=== PATIENT | female | born 1960 | race Caucasian/White ===

== ENCOUNTER 2024-08-05 12:15 | Emergency (ER) | payer OTHER, SELFPAY ==
[2024-08-05 12:31] VITALS: BP 140/63; PULSE 70; RESP 20; TEMP 36.9; O2SAT 100; BMI 27.4
--- NOTE | 2024-08-05 12:35 | ED_ITS ---
HPI - General Adult General Chief complaint: General Medical Stated complaint: Chest discomfort History of Present Illness HPI narrative: Patient left without completion of treatment by ED provider. Related Data Allergies Allergy/AdvReac Type Severity Reaction Status Date / Time No Known Allergies Allergy Verified 08/05/24 12:34 [facility] Social History Social History Advance Directives: No Advance Directives Information Provided: No Physical Exam ED Vital Signs: Vital Signs - 24 hr 08/05/24 12:31 Temperature 98.5 F Pulse Rate 70 Respiratory Rate 20 Blood Pressure 140/63 H Pulse Oximetry 100 Oxygen Delivery Method Room Air BMI result Body Mass Index 27.4 Course Course Course Narrative: RME: 63 yold female presents to the ED for epigastric abdominal pain while at work. Patient states pmh of GERD. no releif with PPI meds. positigve for slighs epigastric tenderness. Labs ekg ordered Medical Decision Making Lab Data 08/05/24 12:56 08/05/24 12:56 Labs: Lab Results 08/05/24 08/05/24 Range/Units 12:56 15:17 WBC 6.4 (4.8-10.8) X10*3/uL RBC 4.36 (4.20-5.50) X10*6/uL Hgb 12.9 (12.0-16.0) g/dl Hct 38.3 (37.0-47.0) % MCV 87.8 (80.0-98.0) fL MCH 29.6 (27.0-33.0) pg MCHC 33.7 (31.0-35.0) g/dl RDW 13.7 (11.0-16.0) % Plt Count 234 (160-400) X10*3/uL MPV 10.0 (9.4-12.3) fL Immature Gran % (Auto) 0.2 (0.0-0.4) % Neut % (Auto) 50.1 (45-73) % Lymph % (Auto) 39.4 (20-40) % [place] % (Auto) 8.9 (2-11) % Eos % (Auto) 1.1 (0-4) % Baso % (Auto) 0.3 (0-2) % Lymph # (Auto) 2.5 (1.2-4.9) X10*3/uL [place] # (Auto) 0.6 (0.1-1.2) X10*3/uL Eos # (Auto) 0.1 (0.0-0.4) X10*3/uL Baso # (Auto) 0.0 (0.0-0.2) X10*3/uL Abs Immat Gran (auto) 0.01 (0.00-0.03) X10*3/uL Absolute Neuts (auto) 3.2 (2.0-8.3) x10*3/uL Absolute Nucleated RBC 0.000 (0.0-0.012) X10*3/uL Nucleated RBC % (auto) 0.0 (0.0-0.2) /100WBC PT 10.7 L (10.9-12.4) SEC INR 0.9 (0.9-1.1) APTT 30.5 (26.0-36.8) SEC Sodium 142 (135-145) mmol/L Potassium 4.1 (3.3-5.1) mmol/L Chloride 108 (96-108) mmol/L Carbon Dioxide 25 (22-29) mmol/L Anion Gap 13 (12-20) BUN 11 (9-16) mg/dL Creatinine 0.66 (0.5-1.4) mg/dL Estim Creat Clear Calc 80.8 Estimated GFR > 60 Random Glucose 76 (60-115) mg/dL Calcium 9.3 (8.4-10.2) mg/dL Total Bilirubin 0.4 (0.0-1.0) mg/dL AST 21 (5-31) U/L ALT 16 (0-31) U/L Alkaline Phosphatase 70 (39-117) U/L Troponin I High Sens < 2.7 < 2.7 (<3.5-17.0) ng/L Total Protein 7.0 (6.5-8.0) g/dL Albumin 4.2 (3.5-5.0) g/dL Lipase 42 (8-78) U/L Discharge Plan Discharge Clinical Impression: Abdominal pain Patient Disposition: Left W/O Completing Treatment Discharge Date/Time: 08/05/24 15:44
--- NOTE | 2024-08-05 12:36 | ECG_ITS ---
Test Reason : EPIGASTRIC PAIN Blood Pressure : */* mmHG Vent. Rate : 67 BPM Atrial Rate : 67 BPM P-R Int : 170 ms QRS Dur : 80 ms QT Int : 398 ms P-R-T Axes : -8 -8 -1 degrees QTcB Int : 420 ms Normal sinus rhythm with sinus arrhythmia Low voltage QRS Borderline ECG No previous ECGs available Referred By: Alonzo Pavon Electronically Signed By: FRANCIE GIFFORD
[2024-08-05 13:01] LABS: Basophils Percent Auto 0.3 % (0-2); Eosinophils Absolute Auto 0.1 X10*3/uL (0.0-0.4); Eosinophils Percent Auto 1.1 % (0-4); Hematocrit 38.3 % (37.0-47.0); Hemoglobin 12.9 g/dl (12.0-16.0); Imm Gran Abs Auto 0.01 X10*3/uL (0.00-0.03); Imm Gran Pct Auto 0.2 % (0.0-0.4); Lymphocytes Absolute Auto 2.5 X10*3/uL (1.2-4.9); Lymphocytes Percent Auto 39.4 % (20-40); MANUAL DIFF FLAG NO; Mean Corpuscular HGB Conc 33.7 g/dl (31.0-35.0); Mean Corpuscular Hemoglobin 29.6 pg (27.0-33.0); Mean Corpuscular Volume 87.8 fL (80.0-98.0); Monocytes Absolute Auto 0.6 X10*3/uL (0.1-1.2); Monocytes Percent Auto 8.9 % (2-11); Neutrophils Absolute Auto 3.2 x10*3/uL (2.0-8.3); Neutrophils Percent Auto 50.1 % (45-73); Platelet Count 234 X10*3/uL (160-400); Red Blood Count 4.36 X10*6/uL (4.20-5.50); Red Cell Distribution Width 13.7 % (11.0-16.0); White Blood Count 6.4 X10*3/uL (4.8-10.8)
[2024-08-05 13:11] LABS: INTERNATIONAL NORM RATIO 0.9 (0.9-1.1); Prothrombin Time 10.7 SEC (10.9-12.4)
[2024-08-05 13:13] LABS: Partial Thromboplastin Time 30.5 SEC (26.0-36.8)
[2024-08-05 13:37] LABS: Alanine Aminotransferase 16 U/L (0-31); Albumin Level 4.2 g/dL (3.5-5.0); Anion Gap 13 (12-20); Aspartate Amino Transferase 21 U/L (5-31); Bilirubin Total 0.4 mg/dL (0.0-1.0); Blood Urea Nitrogen 11 mg/dL (9-16); Calcium 9.3 mg/dL (8.4-10.2); Carbon Dioxide 25 mmol/L (22-29); Chloride 108 mmol/L (96-108); Creatinine Clr Calc Pharmacy 80.8; Estimated Glomerular Filt Rate > 60; Glucose Random 76 mg/dL (60-115); Lipase 42 U/L (8-78); Potassium 4.1 mmol/L (3.3-5.1); Sodium 142 mmol/L (135-145)
[2024-08-05 13:43] LABS: Troponin-I High Sensitivity < 2.7 ng/L (<3.5-17.0)
[2024-08-05 14:40] VITALS: BP 124/64; PULSE 78; RESP 20; TEMP 37; O2SAT 99
--- NOTE | 2024-08-05 15:44 | PC.NURSE ---
Pt did alert this RN that she was going to need to leave d.t having to get home to her mom on [facility]. Pt aware that her work up has been reassuring and for her to follow up with her PCP/ and or reasons she should return to the ED.
[2024-08-05 15:54] LABS: Troponin-I High Sensitivity < 2.7 ng/L (<3.5-17.0)
--- OUTSIDE RECORDS SUMMARY | 2024-08-05 16:37 | XMS_ITS | Patient Health Record ---
Author Organization [facility] [place] [facility] [place] Address [address] [place] [address] Care Team Providers Care Time Clerk Name Role Phone Durham, Anam Primary Care Provider Unavailabl e Black, Esther Unavailable [phone] Allergies Allergen (clinical drug ingredient) Drug/Non Drug Allergy documented on EMR Reaction Allergy Type Onset Date Status Magnesium rash Drug Allergy Active Reason For Referral No Information Medications Medication SIG (Take, Route, Fr equency, Duration) Notes Start Date End Date Status Vitamin D Active Magnesium 500 MG 1 tablet with a meal Orally Once a day Not-Taking Crestor 20 MG 1 tablet Orally Once a day Active Biotin Active Singulair 10 MG 1 tablet in the even ing Orally Once a day Not-Taking Cephalexin 500 MG 1 capsule Orally twi ce a day for 10 days 02/15/2022 Active Zoloft Not-Taking Keflex 500 MG 1 capsule Orally BID for 10 days 03/02/2020 Not-Taking Fish Oil 1000 MG 1 capsule Orally Once a day Active Vitamin C 1000 MG 1 tablet Orally Once a day Active NexIUM 20 MG 1 capsule Orally Once a day Active Social History Alcohol Screen Question Answer Notes Did you have a drink containing alcohol in the p ast year? No Points 0 Interpretation Negative Tobacco use other than smoking: Question Answer Notes Are you an other tobacco user? 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.521) Active confirmed Plan Of Treatment Pending Test Test Name Order Date *Liver Function Test (LFT) 05/27/2015 33631-[id number] NAIL, 6 OR MORE 06/21/2016 [id number] Plate 06/21/2016 57879-Vlewpmhq Plate 03/14/2016 44219-Mjcuvyaz Plate 02/12/2017 89740-Clhlacyn Plate 04/30/2018 [id number] Plate Each Additional 43523-Yhzleubj Plate Each Additional [id number] 03/02/2020 65566-LNL 02/15/2022 67206- Debride <25 sq cm 03/01/2022 09790- Debride <25 sq cm 03/16/2020 37574- Debride <25 sq cm 04/06/2020 10296- Debride <25 sq cm 05/14/2018 23687- Debride <25 sq cm 07/12/2018 Insurance Providers Payer Name Payer Address Payer Phone Subscriber Number Group Number Insured Name Patient Relationship to Insured Coverage Start Date Coverage End Date [facility] [address] [place] [phone] [id number] Mary Sun Self - patient is the insured Medical (General) History Medical History History ICD Code Glaucoma Reflux Chicken pox Cholesterol Asthma Diverticulitis Surgical History Surgery Date(Month/Year)
[2024-08-05 17:28] LABS: Alkaline Phosphatase 70 U/L (39-117)
== END 2024-08-05 15:44 | disposition left against medical advice (07) ==
PROVIDERS: Physician Assistant; Emergency Provider Emergency Medicine
DX: R10.13 Epigastric pain (principal); K21.9 Gastro-esophageal reflux disease without esophagitis
CPT/HCPCS: 36415; 80053; 83690; 84484; 85025; 85610; 85730; 93005; 99283

== ENCOUNTER → 2024-08-05 12:36 | Outpatient (BNV) | payer OTHER, SELFPAY | PROVIDERS: Emergency Provider Emergency Medicine; Visit Provider Internal Medicine | DX: R10.13 Epigastric pain (principal) | CPT/HCPCS: 93010 ==